=== PATIENT | male | born 1990 | race African-American/Black ===

== ENCOUNTER → 2022-09-12 | Emergency (ER) | payer SELFPAY ==
[~2022-09-12] VITALS: Ht 185.4 cm; Wt 80.7 kg
[~2022-09-12] MED LIST: IBUPROFEN 400 MG TABLET ONE; IBUPROFEN 400 MG TABLET PO ONE; LIDOCAINE 1%-EPI 1:100,000 20 ML VIAL ONE
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
--- NOTE | 2022-09-13 00:07 | NUR ---
ISAK NON EMERGENT REPORT MADE REPORT #[id number] SPOKE TO CROWN ASSEMBLY MACHINE SET UP MECHANIC #[phone]
--- NOTE | 2022-09-13 00:38 | NUR ---
Patient discharged to home in stable condition. Written and verbal after care instructions given. Patient verbalizes understanding of instruction. Pt ambulatory with a steady gait
[2022-09-13 00:39] VITALS: BP 133/80
== END | disposition home or self-care (01) ==
LOC: ER 23:28
DX: S01.112A Laceration without foreign body of left eyelid and periocular area, initial encounter (principal); W22.8XXA Striking against or struck by other objects, initial encounter; Y93.89 Activity, other specified; Y92.89 Other specified places as the place of occurrence of the external cause; Y99.8 Other external cause status
CPT/HCPCS: 99282; 12013; A6403; J3490

== ENCOUNTER 2022-09-19 13:37 | Emergency (ER) | payer SELFPAY ==
[~2022-09-19] VITALS: Ht 185.4 cm; Wt 79.4 kg
[2022-09-19 14:07] VITALS: BP 124/78
== END 2022-09-19 15:02 | disposition home or self-care (01) ==
LOC: ER 13:42
DX: S01.112D Laceration without foreign body of left eyelid and periocular area, subsequent encounter (principal); X58.XXXD Exposure to other specified factors, subsequent encounter